=== PATIENT | female | born 1980 | race African-American/Black ===

== ENCOUNTER 2016-11-13 23:28 | Emergency (ER) | payer OTHER ==
[~2016-11-13] VITALS: Ht 165.1 cm; Wt 76.0 kg
[2016-11-14 02:09] VITALS: BP 140/85
== END 2016-11-14 02:10 | disposition home or self-care (01) ==
LOC: ER 11-14 00:47
DX: J06.9 Acute upper respiratory infection, unspecified (principal); I10 Essential (primary) hypertension
CPT/HCPCS: 99283